=== PATIENT | male | born 1965 | race Hispanic/Latino ===

== ENCOUNTER → 2025-01-02 | Outpatient (CLI) | payer OTHER ==
--- NOTE | 2025-01-02 12:50 | HMCIMG ---
Lumbar spine series including lateral flexion and extension views Comparison Study: none History: RADICULAPATHY, W/ FLEX AND EXT Findings: Exam of the lumbosacral spine demonstrates no evidence of fracture, subluxation, or significant degenerative change. There is laminectomy with interpedicular screws seen at L4-L5 and L5-S1 with disc spacers in place. There is straightening consistent with spasm. The lateral flexion and extension views demonstrate no abnormal motion. There are spondylitic changes and degenerative changes of the facet joints. The disc spaces are intact. The facet joints are preserved without significant degenerative changes Bone mineralization is normal. Impression: No abnormal motion on flexion-extension lateral views. There are degenerative changes as noted. Laminectomy with interpedicular screws seen at L4-L5 and L5-S1.
== END | disposition home or self-care (01) ==
LOC: RAH 11:15
PROVIDERS: ATTEND Physician Assistant
DX: M47.26 Other spondylosis with radiculopathy, lumbar region (principal); M46.1 Sacroiliitis, not elsewhere classified; M54.51 Vertebrogenic low back pain; Z98.1 Arthrodesis status
CPT/HCPCS: 72114